=== PATIENT | female | born 1930 | race African-American/Black ===

== ENCOUNTER 2017-05-12 13:40 | Inpatient (IN) | payer MEDICARE, MEDICAID ==
[~2017-05-12] VITALS: Ht 160 cm; Wt 84.5 kg
[~2017-05-12 13:40] MED LIST: ACET-2708 PO; COD1CAPS7 PO; FURO40TA5 PO; LOTE5DRO5 EACHEYE; PRED5DRO7 EACHEYE
[2017-05-12 14:41] LABS: BASOPHILS % 0.2 % (0.0-2.0); EOSINOPHILS % 0.4 % (0.0-5.0); HEMOGLOBIN. 9.5 g/dL (12.0-16.0); MEAN CORPUSCULAR HEMOGLOBIN 25.5 pg (28.0-32.0); MEAN CORPUSCULAR VOLUME 80.6 fL (81.0-99.0); MEAN PLATELET VOLUME 8.5 fl (7.4-10.4); MONOCYTES % 9.6 % (2.0-8.0); NEUTROPHILS % 80.8 % (40.0-76.0); PLATELET 217 x1000/uL (130-400); RED BLOOD CELL COUNT 3.72 mill/uL (4.2-5.4); RED CELL DISTRIBUTION WIDTH 15.8 % (11.6-14.6)
[2017-05-12 14:49] LABS: INR 1.1; PARTIAL THROMBOPLASTIN TIME 30.2 sec (24.0-34.0); PROTHROMBIN TIME 11.7 sec
[2017-05-12 14:50] LABS: CARBON DIOXIDE 27 mEq/L (21-32); CHLORIDE 100 mEq/L (98-107)
[2017-05-12 14:57] LABS: TROPONIN I 0.04 ng/mL (0.00-0.04)
[2017-05-12] MEDS ORDERED: ENOXAPARIN 100MG/ML SYR SUBCUT ONE (17:30)
[2017-05-12] MEDS ORDERED: FUROSEMIDE 20MG/2ML VIAL IVP ONE (18:30)
[2017-05-12] MEDS ORDERED: ENOXAPARIN 100MG/ML SYR SUBCUT NR (18:45)
[2017-05-12 22:50] VITALS: BP 146/74
[2017-05-12 23:00] VITALS: BP 146/74
[2017-05-12] MEDS ORDERED: AMLO5TAB4 PO (23:14)
[2017-05-12] MEDS ORDERED: METO50TA5 PO (23:14)
[2017-05-12] MEDS ORDERED: AMLO2.5T45 PO (23:14)
[2017-05-13] MEDS ORDERED: IPRATROPIUM/ALBUTEROL 0.5-3(2.5)MG/3ML NEB INH PRN (00:45)
[2017-05-13] MEDS ORDERED: ACETAMINOPHEN 325MG TABLET PO PRN (00:45)
[2017-05-13] MEDS ORDERED: MAGNESIUM HYDROXIDE 400MG/5ML 30ML UDC PO ONE (00:45)
[2017-05-13] MEDS ORDERED: MAGNESIUM/ALUMINUM HYDROXIDE/SIMETHICONE 30ML UDC PO PRN (00:45)
[2017-05-13] MEDS ORDERED: CLONIDINE 0.1MG TABLET PO PRN (00:45)
[2017-05-13] MEDS ORDERED: ONDANSETRON HCL 4MG/2ML VIAL IV PRN (00:45)
[2017-05-13] MEDS ORDERED: DIPHENHYDRAMINE 50MG/ML VIAL IV PRN (00:45)
[2017-05-13] MEDS ORDERED: HYDROCODONE/ACETAMINOPHEN 5/325MG TABLET PO PRN (00:45)
[2017-05-13 02:13] LABS: CLARITY URINE CLEAR (CLEAR); COLOR URINE YELLOW (YELLOW); GLUCOSE URINE NEGATIVE (NEGATIVE); KETONES URINE NEGATIVE (NEGATIVE); LEUKOCYTE ESTERASE URINE NEGATIVE (NEGATIVE); NITRITE URINE NEGATIVE (NEGATIVE); OCCULT BLOOD URINE NEGATIVE (NEGATIVE); PROTEIN URINE NEGATIVE (NEGATIVE); SPECIFIC GRAVITY URINE 1.013 (1.005-1.030)
[2017-05-13 04:00] VITALS: BP 151/68
[2017-05-13] MEDS: SODIUM CHLORIDE 0.9% INJ 3ML FLUSH IVF SCH ×2 (05:15→18:22)
[2017-05-13] MEDS: ENOXAPARIN 80MG/0.8ML SYR SUBCUT SCH ×2 (06:04→18:22)
[2017-05-13 08:00] VITALS: BP 140/70
[2017-05-13] MEDS ORDERED: AMLODIPINE 5MG TABLET PO SCH (09:00)
[2017-05-13] MEDS ORDERED: METOPROLOL TARTRATE 50MG TABLET PO SCH (09:00)
[2017-05-13] MEDS: DOCUSATE SODIUM 250MG CAPSULE PO SCH ×2 (09:05→16:56)
[2017-05-13 12:00] VITALS: BP 143/64
[2017-05-13 16:00] VITALS: BP 133/71
[2017-05-13 18:07] VITALS: BP 133/71
== END 2017-05-13 19:32 | disposition short-term general hospital (02) | DRG 299 ==
LOC: ER 13:41 → EDBEDREQSVC 18:04 → EDBEDREQ 18:04 → 5WST 19:52 → ENRESERV 20:25
PROVIDERS: ADMIT Internal Medicine; ATTEND Internal Medicine
DX: I82.413 Acute embolism and thrombosis of femoral vein, bilateral (principal); I50.41 Acute combined systolic (congestive) and diastolic (congestive) heart failure; R65.10 Systemic inflammatory response syndrome (SIRS) of non-infectious origin without acute organ dysfunction; D64.9 Anemia, unspecified; I11.0 Hypertensive heart disease with heart failure; K56.41 Fecal impaction; K57.30 Diverticulosis of large intestine without perforation or abscess without bleeding; Z96.651 Presence of right artificial knee joint; Z91.010 Allergy to peanuts; Z88.0 Allergy status to penicillin; Z91.018 Allergy to other foods; Z79.899 Other long term (current) drug therapy; Z82.49 Family history of ischemic heart disease and other diseases of the circulatory system
CPT/HCPCS: 36415; 51702; 71010; 74176; 76856; 80053; 81003; 83605; 83880; 84484; 85025; 85610; 85730; 87040; 87086; 93005; 93970; 96372; 96374; 99291; J1650; J1940; A4315